=== PATIENT | male | born 1995 | race Caucasian/White ===

== ENCOUNTER 2023-12-31 15:22 | Outpatient (CLI) | payer SELFPAY ==
[2023-12-31 15:51] LABS: PH Semen 7.5 (7.0-8.0); Volume Semen 5.5 mL (2-5)
[2023-12-31 15:52] LABS: Red Blood Count Semen 0-4 /hpf; Sperm Immotility 25 % (50-60); Sperm Non-Progressive Motility 5 % (5-10); Sperm Progressive Motility 70 % (31-34); Viscosity Semen Droplets; White Blood Count Semen 25-40 /hpf
[2023-12-31 15:53] LABS: Pathology Referral Yes
== END 2023-12-31 15:23 | disposition home or self-care (01) ==
LOC: LAB 15:27
PROVIDERS: Family Provider Family Medicine; PCP Family Medicine; Visit Provider Family Medicine
DX: Z31.41 Encounter for fertility testing (principal)
CPT/HCPCS: 80503; 89320

== ENCOUNTER 2025-04-27 09:22 | Outpatient (CLI) | payer SELFPAY ==
[2025-04-27 09:46] LABS: Volume Semen 6.0 mL (2-5)
[2025-04-27 09:47] LABS: Epithelial Count Semen Rare /hpf; Pathology Referral Yes; Red Blood Count Semen 0-4 /hpf; Viscosity Semen High Viscosity
[2025-04-27 09:52] LABS: Sperm Immotility 10 % (50-60)
[2025-04-27 09:53] LABS: Sperm Non-Progressive Motility 40 % (5-10); Sperm Progressive Motility 50 % (31-34)
[2025-04-27 10:11] LABS: Sperm Count 69.0000 mill/mL (40-160)
== END 2025-04-27 09:23 | disposition home or self-care (01) ==
PROVIDERS: Family Provider Family Medicine; PCP Family Medicine; Visit Provider Nurse Practitioner Women's Health
DX: R86.8 Other abnormal findings in specimens from male genital organs (principal)
CPT/HCPCS: 80503; 89320